=== PATIENT | female | born 1940 | race Two or more races ===

== ENCOUNTER 2018-01-10 21:16 | Emergency (ER) | payer MEDICARE, OTHER ==
[~2018-01-10] VITALS: Ht 121.9 cm; Wt 52.1 kg
[2018-01-10 21:19] VITALS: BP 196/82
== END 2018-01-10 21:45 | disposition home or self-care (01) ==
LOC: ED 21:39
DX: H65.01 Acute serous otitis media, right ear (principal); I10 Essential (primary) hypertension; E11.9 Type 2 diabetes mellitus without complications; I25.10 Atherosclerotic heart disease of native coronary artery without angina pectoris
CPT/HCPCS: 99282

== ENCOUNTER 2018-05-16 00:46 | Emergency (ER) | payer MEDICARE ==
[~2018-05-16] VITALS: Ht 152.4 cm; Wt 47.6 kg
--- NOTE | 2018-05-16 01:06 | NUR ---
PT PRESENTS TO E/D THIS PM FOR "ANXIETY AND CHEST DISCOMFORT." PT IS CRYING AT BEDSIDE AND STATES SHE IS FEELING ANXIOUS SHE IS HAVING ANOTHER HEART ATTACK. STATES DX OF ANXIETY AND PAST W/ MEDICATION FOR MANAGEMENT. DENIES TAKING MEDICATION FOR ANXIETY RECENTLY. STATES CP L SIDE OF CHEST RADIATING TO A "CRAMP IN L OF NECK." STATES SOB AND NAUSEA ASSOCIATED WELL. TOOK 1 NITRO AT 2300 W/ MODERATE RELIEF AND ASPIRIN INSTRUCTED BY PRIOR MEDICAL STAFF TEACHING. 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 ALL MONITORING APPLIED. VSS. CALL LIGHT WITHIN REACH. AWAITING MD ASSESSMENT.
[2018-05-16 01:51] LABS: BASOPHILS # (AUTO) 0.02 x10^3/uL (0-0.1); BASOPHILS % (AUTO) 0 % (0-1); EOSINOPHILS # (AUTO) 0.07 x10^3/uL (0-0.4); EOSINOPHILS % (AUTO) 1 % (1-7); LYMPHOCYTES # (AUTO) 1.88 x10^3/uL (1-3.4); LYMPHOCYTES % (AUTO) 20 % (22-44); MD NO; MEAN CORPUSCULAR HEMOGLOBIN 32.2 pg (27.0-34.8); MEAN CORPUSCULAR HGB CONC 33.8 g/dL (32.4-35.8); MEAN CORPUSCULAR VOLUME 95.3 fL (80-100); MEAN PLATELET VOLUME 8.4 fL (7.4-10.4); MONOCYTES # (AUTO) 0.29 x10^3/uL (0.2-0.8); MONOCYTES % (AUTO) 3 % (2-9); NEUTROPHILS # (AUTO) 7.23 x10^3/uL (1.8-6.8); NEUTROPHILS % (AUTO) 76 % (42-75); PLATELET COUNT 297 x10^3/uL (130-400); RED BLOOD COUNT 3.33 x10^6/uL (3.82-5.3); RED CELL DISTRIBUTION WIDTH 13.2 % (9.6-15.2)
[2018-05-16 01:57] LABS: PROTHROMBIN TIME 10.6 Seconds (9.6-11.5)
[2018-05-16 01:58] LABS: ALANINE AMINOTRANSFERASE 13 U/L (12-78); ALBUMIN 3.3 g/dL (3.4-5.0); ANION GAP 8 mmol/L (5-15); CALCIUM 8.2 mg/dL (8.5-10.1); CHLORIDE 112 mmol/L (98-107); CREATININE 0.78 mg/dL (0.55-1.02)
[2018-05-16 02:02] LABS: ALKALINE PHOSPHATASE 83 U/L (45-117); BILIRUBIN,TOTAL 0.2 mg/dL (0.2-1.0); TROPONIN I < 0.015 ng/mL (0.000-0.045)
--- NOTE | 2018-05-16 02:25 | NUR ---
AT BEDSIDE FOR RECHECK.
--- NOTE | 2018-05-16 02:34 | NUR ---
PT TROP TO BE REPEAT AT 0430 AND TBDC IF TROP IS NEGATIVE BY ERP ORDER. NO IMMEDIATE NEEDS FROM PT. VSS. CALL LIGHT WITHIN REACH.
--- NOTE | 2018-05-16 03:25 | NUR ---
PT GIVEN WATER PER REQUEST. WARM BLANKET GIVEN AND LIGHTS DIMMED FOR COMFORT. VSS. CALL LIGHT WITHIN REACH. AWAITING 0430 TROP DRAW.
--- NOTE | 2018-05-16 04:48 | NUR ---
LAB DRAWN AT THIS TIME. NADN. NO IMMEDIATE NEEDS FROM PT. AWAITING TROP RESULTS.
[2018-05-16 04:49] VITALS: BP 131/59
[2018-05-16 05:12] LABS: TROPONIN I < 0.015 ng/mL (0.000-0.045)
--- NOTE | 2018-05-16 05:15 | NUR ---
PT TBDC. AWAITING D/C PAPERWORK.
== END 2018-05-16 05:21 | disposition home or self-care (01) ==
LOC: ED 01:41
DX: R07.89 Other chest pain (principal); R06.02 Shortness of breath; R51 Headache; R05 Cough; I10 Essential (primary) hypertension; E11.9 Type 2 diabetes mellitus without complications; I65.29 Occlusion and stenosis of unspecified carotid artery
CPT/HCPCS: 36415; 71045; 80053; 83880; 84484; 85025; 85610; 85730; 93005; 99284

== ENCOUNTER 2018-05-21 22:11 | Observation (INO) | payer MEDICARE ==
[~2018-05-21] VITALS: Ht 149.9 cm; Wt 50.9 kg
--- NOTE | 2018-05-21 22:27 | NUR ---
PT. AMBULATED TO ROOM FROM TRIAGE WITH STEADY GAIT.
--- NOTE | 2018-05-21 22:35 | NUR ---
PT. TO ED WITH C/O STERNAL CHEST PRESSURE AFTER AN ARGUMENT WITH FAMILY TONIGHT. PT. REPORTS PAIN CAME ON ALL OF THE SUDDEN AND IS OFF/ON. DENIES SOB, N/V, OR DIZZINESS. DR. ASCENCIO AT TO EVAL PT. AND DISCUSS POC. PT. IS ON ALL MONITORS. CALL LIGHT IN REACH, ALL SAFETY MEASUERS OBSERVED.
[2018-05-21] MEDS ORDERED: NITROGLYCERIN OINT 2%, 1GM TP ONE ×2 (23:00→23:07)
[2018-05-21] MEDS ORDERED: SODIUM CHLORIDE FLUSH 10ML SYR IVF ONE (23:00)
[2018-05-21] MEDS ORDERED: ASPIRIN 81 MG TABLET CHEW PO ONE (23:00)
[2018-05-21] MEDS ORDERED: ASPIRIN 81 MG TABLET CHEW ONE (23:07)
--- NOTE | 2018-05-21 23:12 | NUR ---
IV WAS ESTABLISHED AND BLOOD DRAWN. CHEST X-RAY HAS BEEN COMPLETED. PT. MEDICATED PER JUN. PT. DOES REPORT THAT HER STERNAL CP RADIATES TO LEFT ARM/NECK/BACK. PT. PROVIDED WITH WARM BLANKET. CALL LIGHT IN REACH. ALL MONITORS IN PLACE. ALL SAFETY MEASURES OBSERVED.
[2018-05-21 23:17] LABS: BASOPHILS # (AUTO) 0.03 x10^3/uL (0-0.1); BASOPHILS % (AUTO) 0 % (0-1); EOSINOPHILS # (AUTO) 0.08 x10^3/uL (0-0.4); EOSINOPHILS % (AUTO) 1 % (1-7); LYMPHOCYTES # (AUTO) 1.75 x10^3/uL (1-3.4); LYMPHOCYTES % (AUTO) 16 % (22-44); MD NO; MEAN CORPUSCULAR HEMOGLOBIN 31.8 pg (27.0-34.8); MEAN CORPUSCULAR HGB CONC 33.6 g/dL (32.4-35.8); MEAN CORPUSCULAR VOLUME 94.8 fL (80-100); MEAN PLATELET VOLUME 8.2 fL (7.4-10.4); MONOCYTES # (AUTO) 0.49 x10^3/uL (0.2-0.8); MONOCYTES % (AUTO) 5 % (2-9); NEUTROPHILS # (AUTO) 8.31 x10^3/uL (1.8-6.8); NEUTROPHILS % (AUTO) 78 % (42-75); PLATELET COUNT 362 x10^3/uL (130-400); RED BLOOD COUNT 3.63 x10^6/uL (3.82-5.3); RED CELL DISTRIBUTION WIDTH 13.6 % (9.6-15.2)
[2018-05-21 23:20] LABS: INTERNATIONAL NORMALIZED RATIO 0.99 (0.93-1.1); PROTHROMBIN TIME 10.5 Seconds (9.6-11.5)
[2018-05-21 23:22] LABS: ALANINE AMINOTRANSFERASE 13 U/L (12-78); ALBUMIN 3.4 g/dL (3.4-5.0); ANION GAP 6 mmol/L (5-15); CALCIUM 8.6 mg/dL (8.5-10.1); CHLORIDE 115 mmol/L (98-107); CREATININE 0.83 mg/dL (0.55-1.02)
[2018-05-21] MEDS ORDERED: ALBU18HF INH (23:22)
[2018-05-21] MEDS ORDERED: CARV12.52 PO (23:22)
[2018-05-21] MEDS ORDERED: ISOS60TA36 PO (23:22)
[2018-05-21] MEDS ORDERED: LEVO88TA4 PO (23:22)
[2018-05-21] MEDS ORDERED: LOSA25TA25 PO (23:22)
[2018-05-21] MEDS ORDERED: CLOP75TA52 PO (23:22)
[2018-05-21] MEDS ORDERED: SULF-169 PO (23:22)
[2018-05-21] MEDS ORDERED: IPRA4AER INH (23:22)
[2018-05-21] MEDS ORDERED: LINA5TAB PO (23:22)
[2018-05-21] MEDS ORDERED: GABA100C PO (23:22)
[2018-05-21] MEDS ORDERED: ATOR20TA37 PO (23:22)
--- NOTE | 2018-05-21 23:22 | NUR ---
PT. REPORTS PAIN STARTED AT 2155; TOOK 1 NITRO TAB AT 2200 AND PAIN WENT FROM 10 TO 6; PT. THEN CAME TO ED.
[2018-05-21 23:26] LABS: ALKALINE PHOSPHATASE 86 U/L (45-117); BILIRUBIN,TOTAL 0.2 mg/dL (0.2-1.0); TROPONIN I < 0.015 ng/mL (0.000-0.045)
--- NOTE | 2018-05-22 00:09 | NUR ---
ALL RESULTES BACK AT THIS TIME. PER DR. ASCENCIO PT. TO BE ADMITTED; AWAITING ADM ORDER.
[2018-05-22] MEDS ORDERED: NITROGLYCERIN 0.4 MG BOTTLE (25 TABS) SL PRN (00:30)
[2018-05-22] MEDS ORDERED: ONDANSETRON ODT 4 MG PO PRN (00:30)
[2018-05-22] MEDS ORDERED: POLYETHYLENE GLYCOL 17 GM PACKET PO PRN (00:30)
[2018-05-22] MEDS ORDERED: BISACODYL 10 MG SUPP PR PRN (00:30)
--- NOTE | 2018-05-22 01:21 | NUR ---
REPORT TO HELLEN GEE. FLOOR READY FOR PT. TRANSPORT.
[2018-05-22 01:35] VITALS: BP 129/75
[2018-05-22] MEDS: GABAPENTIN 100 MG CAPSULE PO SCH ×3 (01:53→21:35)
[2018-05-22] MEDS: ATORVASTATIN 20 MG TABLET PO SCH ×2 (01:54→21:27)
[2018-05-22] MEDS: ACETAMINOPHEN 325 MG TABLET PO PRN ×3 (01:54→21:30)
[2018-05-22] MEDS: HEPARIN 5,000 UNITS/ML, 1ML SQ SCH ×4 (01:54→21:27)
[2018-05-22 02:11] VITALS: BP 129/75
[2018-05-22] MEDS ORDERED: ALBUTEROL/IPRATROPIUM 2.5MG/0.5MG, 3 ML NPPB PRN (04:00)
[2018-05-22 05:21] VITALS: BP 107/53
[2018-05-22] MEDS: ASPIRIN 81 MG TABLET EC PO SCH (05:24)
[2018-05-22] MEDS: LEVOTHYROXINE 88 MCG TABLET PO SCH (05:25)
[2018-05-22] MEDS: CARVEDILOL 12.5 MG TABLET PO SCH ×2 (05:25→18:27)
[2018-05-22 07:21] VITALS: BP 112/78
[2018-05-22 07:55] LABS: TROPONIN I < 0.015 ng/mL (0.000-0.045)
[2018-05-22] MEDS ORDERED: REGADENOSON 0.4 MG/5 ML SYRINGE ONE (08:29)
[2018-05-22] MEDS: SENNA/DOCUSATE TABLET PO SCH (08:50)
[2018-05-22] MEDS: SODIUM CHLORIDE FLUSH 10ML SYR IVF SCH ×2 (08:50→21:28)
[2018-05-22] MEDS: ISOSORBIDE MONONITRATE ER 60 MG TABLET PO SCH (08:50)
[2018-05-22] MEDS: LOSARTAN 25MG TABLET PO SCH (08:50)
[2018-05-22] MEDS: SULFAMETH./TRIMETHOPRIM DS 800MG/160MG TABLET PO SCH ×3 (08:50→21:33)
[2018-05-22] MEDS: CLOPIDOGREL 75 MG TABLET PO SCH (08:50)
[2018-05-22 12:25] LABS: TROPONIN I < 0.015 ng/mL (0.000-0.045)
[2018-05-22 14:36] VITALS: BP 105/52
[2018-05-22] MEDS ORDERED: MORPHINE SULFATE 4 MG/ML, 1ML ONE (18:22)
[2018-05-22] MEDS: morphine SULFATE 10 MG/ML, 1ML IVPush PRN ×2 (18:27→22:45)
[2018-05-22 19:12] VITALS: BP 123/54
[2018-05-23 03:30] VITALS: BP_SYST 116; BP_SYST 136; BP_SYST 144; BP_DIAS 65; BP_DIAS 66; BP_DIAS 73
[2018-05-23] MEDS: morphine SULFATE 10 MG/ML, 1ML IVPush PRN (03:33)
[2018-05-23 05:36] LABS: CHOL/HDL RATIO 2.2; LDL/HDL RATIO 0.6 (0.5-3.0)
[2018-05-23] MEDS: ASPIRIN 81 MG TABLET EC PO SCH (05:50)
[2018-05-23] MEDS: HEPARIN 5,000 UNITS/ML, 1ML SQ SCH ×2 (05:50→13:30)
[2018-05-23] MEDS: LEVOTHYROXINE 88 MCG TABLET PO SCH (05:50)
[2018-05-23] MEDS: CARVEDILOL 12.5 MG TABLET PO SCH (05:51)
[2018-05-23] MEDS ORDERED: SODIUM CHLORIDE 0.9%, 500ML IVBOLUS ONE (06:00)
[2018-05-23 08:05] VITALS: BP 115/54
[2018-05-23 08:06] VITALS: BP 120/64
[2018-05-23 08:07] VITALS: BP 113/65
[2018-05-23] MEDS: SULFAMETH./TRIMETHOPRIM DS 800MG/160MG TABLET PO SCH ×2 (09:00→09:31)
[2018-05-23] MEDS: SENNA/DOCUSATE TABLET PO SCH (09:00)
[2018-05-23] MEDS: CLOPIDOGREL 75 MG TABLET PO SCH (09:30)
[2018-05-23] MEDS: ACETAMINOPHEN 325 MG TABLET PO PRN ×2 (09:31→13:29)
[2018-05-23] MEDS: SODIUM CHLORIDE FLUSH 10ML SYR IVF SCH (09:31)
[2018-05-23] MEDS: LOSARTAN 25MG TABLET PO SCH (09:31)
[2018-05-23] MEDS: ISOSORBIDE MONONITRATE ER 60 MG TABLET PO SCH (09:34)
[2018-05-23 13:23] VITALS: BP 146/72
== END 2018-05-23 16:00 | disposition home or self-care (01) ==
LOC: ED 23:15 → EDIP 05-22 00:24 → 5SO 05-22 01:49 → DCLOUNGE 05-23 15:43
PROVIDERS: ADMIT Internal Medicine; ATTEND Internal Medicine
DX: R07.89 Other chest pain (principal); E03.9 Hypothyroidism, unspecified; E11.9 Type 2 diabetes mellitus without complications; E78.5 Hyperlipidemia, unspecified; I10 Essential (primary) hypertension; I25.110 Atherosclerotic heart disease of native coronary artery with unstable angina pectoris; I44.7 Left bundle-branch block, unspecified; M06.9 Rheumatoid arthritis, unspecified; Z77.22 Contact with and (suspected) exposure to environmental tobacco smoke (acute) (chronic); Z90.710 Acquired absence of both cervix and uterus; Z95.5 Presence of coronary angioplasty implant and graft; Z23 Encounter for immunization
CPT/HCPCS: 36415; 70450; 71045; 78452; 80053; 80061; 84484; 85025; 85610; 85730; 90656; 93005; 93017; 96372; 96374; 96376; 97162; 97166; 97530; 99284; A9502; C9898; G0008; G0378; G8978; G8979; G8980; J1644; J2270; J2785; J7040

== ENCOUNTER 2018-06-27 22:02 | Emergency (ER) | payer MEDICARE ==
[~2018-06-27] VITALS: Ht 147.3 cm; Wt 46.7 kg
[~2018-06-27 22:02] MED LIST: ALBU18HF INH; ATOR20TA37 PO; CARV12.52 PO; CLOP75TA52 PO; GABA100C PO; IPRA4AER INH; ISOS60TA36 PO; LEVO88TA4 PO; LINA5TAB PO; LOSA25TA25 PO; SULF-169 PO
[2018-06-27 22:53] LABS: BASOPHILS # (AUTO) 0.02 x10^3/uL (0-0.1); BASOPHILS % (AUTO) 0 % (0-1); EOSINOPHILS # (AUTO) 0.31 x10^3/uL (0-0.4); EOSINOPHILS % (AUTO) 4 % (1-7); LYMPHOCYTES # (AUTO) 2.14 x10^3/uL (1-3.4); LYMPHOCYTES % (AUTO) 28 % (22-44); MD NO; MEAN CORPUSCULAR HEMOGLOBIN 31.9 pg (27.0-34.8); MEAN CORPUSCULAR HGB CONC 33.7 g/dL (32.4-35.8); MEAN CORPUSCULAR VOLUME 94.7 fL (80-100); MEAN PLATELET VOLUME 7.9 fL (7.4-10.4); MONOCYTES # (AUTO) 0.51 x10^3/uL (0.2-0.8); MONOCYTES % (AUTO) 7 % (2-9); NEUTROPHILS # (AUTO) 4.69 x10^3/uL (1.8-6.8); NEUTROPHILS % (AUTO) 61 % (42-75); PLATELET COUNT 301 x10^3/uL (130-400); RED BLOOD COUNT 3.45 x10^6/uL (3.82-5.3); RED CELL DISTRIBUTION WIDTH 15.8 % (9.6-15.2)
--- NOTE | 2018-06-27 23:04 | NUR ---
PT PLACED ON CARDIAC AND VITALS MONITORS. PT RESTING IN BED IN HOSPITAL GOWN. LABS DRAWN, CXR DONE AND EKG. IV STARTED. PT C/O PAIN IN LEFT LOWER BACK, WILL INFORM PROVIDER. WILL CONTINUE TO MONITOR.
[2018-06-27 23:06] LABS: ALANINE AMINOTRANSFERASE 12 U/L (12-78); ALBUMIN 3.6 g/dL (3.4-5.0); ANION GAP 4 mmol/L (5-15); CALCIUM 8.5 mg/dL (8.5-10.1); CHLORIDE 114 mmol/L (98-107); CREATININE 0.85 mg/dL (0.55-1.02)
[2018-06-27 23:10] LABS: ALKALINE PHOSPHATASE 115 U/L (45-117); BILIRUBIN,TOTAL 0.3 mg/dL (0.2-1.0); TOTAL PROTEIN 7.4 g/dL (6.4-8.2); TROPONIN I < 0.015 ng/mL (0.000-0.045)
[2018-06-27] MEDS ORDERED: KETOROLAC 30 MG/1 ML IM ONE (23:30)
[2018-06-27] MEDS ORDERED: KETOROLAC 30 MG/1 ML ONE (23:45)
[2018-06-28] MEDS ORDERED: KETOROLAC 30 MG/1 ML IVPush ONE
--- NOTE | 2018-06-28 00:53 | NUR ---
REPORT RECEIVED AND CARE ASSUMED. UPON ENTERING , PT REQUESTING NITRO. STATES NEW CP JUST STARTED NOW. STATES "WHEN MY L SIDE STARTS HURTING REALLY BAD, IT TRAVELS TO MY CHEST." PT STATES SHE HAS BEEN TAKING NITRO AT HOME FOR THE LAST WEEK FOR THE SAME. REPEAT EKG COMPLETED. VSS. ERP AT BEDSIDE TO RECHECK.
[2018-06-28] MEDS ORDERED: HYDROcodone/APAP 5/325 TABLET ONE (00:58)
[2018-06-28] MEDS ORDERED: NITROGLYCERIN SINGLE TAB 0.4 MG SL ONE (00:58)
[2018-06-28] MEDS ORDERED: NITROGLYCERIN 0.4 MG BOTTLE (25 TABS) SL PRN (01:00)
[2018-06-28] MEDS ORDERED: HYDROcodone/APAP 5/325 TABLET PO ONE (01:00)
--- NOTE | 2018-06-28 01:02 | NUR ---
PT NOW STATES ALL CP RESOLVED--NITRO HELD AT THIS TIME. PT MEDICATED PER MAR FOR HER CHRONIC HIP PAIN--STATES SHE TAKES NORCO EVERY 4-6 HOURS AT HOME AND IS DUE FOR HER MEDS NOW. CALL LIGHT IN REACH. NO FURTHER NEEDS EXPRESSED.
[2018-06-28] MEDS ORDERED: OMNIPAQUE 350 MG/ML, 100ML BOTTLE ONE (01:30)
--- NOTE | 2018-06-28 01:50 | NUR ---
PT STATES PAIN IMPROVING AFTER NORCO. STATES NO NEW CP AND CONTINUES TO DECLINE NITRO. NO ACUTE CHANGES NOTED ON MONITOR. VSS. LAB AT BEDSIDE TO DRAW REPEAT TROP. PT AWARE OF POC. CALL LIGHT IN REACH.
[2018-06-28 02:12] LABS: TROPONIN I < 0.015 ng/mL (0.000-0.045)
--- NOTE | 2018-06-28 02:18 | NUR ---
SANDWICH AND YOGURT GIVEN PER ERP OK. AWAITING LABS. PT AWARE OF POC. CALL LIGHT IN REACH.
[2018-06-28 03:09] VITALS: BP 164/76
== END 2018-06-28 03:12 | disposition home or self-care (01) ==
LOC: ED 23:57
DX: M54.6 Pain in thoracic spine (principal); R07.89 Other chest pain; R11.10 Vomiting, unspecified; I25.10 Atherosclerotic heart disease of native coronary artery without angina pectoris; E78.5 Hyperlipidemia, unspecified; I10 Essential (primary) hypertension; E11.9 Type 2 diabetes mellitus without complications; X58.XXXA Exposure to other specified factors, initial encounter; Y93.89 Activity, other specified; Y92.009 Unspecified place in unspecified non-institutional (private) residence as the place of occurrence of the external cause; Y99.8 Other external cause status
CPT/HCPCS: 36415; 71045; 71275; 80053; 84484; 85025; 85379; 93005; 96374; 99284; J1885; Q9967

== ENCOUNTER 2018-06-30 16:47 | Inpatient (IN) | payer MEDICARE, OTHER ==
[~2018-06-30] VITALS: Ht 121.9 cm; Wt 50.9 kg
[2018-06-30 17:47] LABS: MEAN CORPUSCULAR VOLUME 94.4 fL (80-100); MEAN PLATELET VOLUME 8.1 fL (7.4-10.4); PLATELET COUNT 299 x10^3/uL (130-400); RED BLOOD COUNT 3.54 x10^6/uL (3.82-5.3)
[2018-06-30 17:52] LABS: BASOPHILS # (AUTO) 0.04 x10^3/uL (0-0.1); BASOPHILS % (AUTO) 0 % (0-1); EOSINOPHILS # (AUTO) 0.12 x10^3/uL (0-0.4); EOSINOPHILS % (AUTO) 1 % (1-7); LYMPHOCYTES # (AUTO) 1.87 x10^3/uL (1-3.4); LYMPHOCYTES % (AUTO) 16 % (22-44); MD NO; MONOCYTES # (AUTO) 0.56 x10^3/uL (0.2-0.8); MONOCYTES % (AUTO) 5 % (2-9); NEUTROPHILS # (AUTO) 8.92 x10^3/uL (1.8-6.8); NEUTROPHILS % (AUTO) 78 % (42-75)
[2018-06-30 17:55] LABS: ALBUMIN 3.6 g/dL (3.4-5.0); ANION GAP 5 mmol/L (5-15); CALCIUM 8.9 mg/dL (8.5-10.1); CHLORIDE 111 mmol/L (98-107); CREATININE 0.89 mg/dL (0.55-1.02)
[2018-06-30 17:59] LABS: TROPONIN I < 0.015 ng/mL (0.000-0.045)
--- NOTE | 2018-06-30 19:44 | NUR ---
pt called to room from lobby
--- NOTE | 2018-06-30 20:16 | NUR ---
PT STATES PAIN LEFT FLANK THAT WRAPS AROUND LEFT SIDE UNDER RIB CAGE, LEFT NECK PAIN, BACK PAIN
[2018-06-30] MEDS ORDERED: KETOROLAC 30 MG/1 ML IVPush ONE (20:30)
[2018-06-30] MEDS ORDERED: HYDR-3240 PO (20:32)
--- NOTE | 2018-06-30 20:50 | NUR ---
REPORT TO PATT MACEDO
--- NOTE | 2018-06-30 21:19 | NUR ---
REPORT RECEIVED FROM JOCELYNN MACEDO.
--- NOTE | 2018-06-30 21:29 | NUR ---
PT CAME TO CT WITH IV IN LEFT ARM THAT DIFFICULT TO FLUSH. START A 20G IN RIGHT AC FOR CT. SENT PT BACK TO ER WITH IV.
[2018-06-30] MEDS ORDERED: OMNIPAQUE 350 MG/ML, 100ML BOTTLE ONE (21:33)
--- NOTE | 2018-06-30 21:35 | NUR ---
PT BACK TO ROOM FROM CT
--- NOTE | 2018-06-30 21:42 | NUR ---
PT'S PAIN LEVEL IS 8/10 AT THIS TIME. PT REQUESTING PAIN MED. EDMD NOTIFIED.
[2018-06-30] MEDS ORDERED: morphine SULFATE 10 MG/ML, 1ML ONE (21:47)
--- NOTE | 2018-06-30 21:50 | NUR ---
PT MEDICATED PER EMAR. PT TOLERATED WELL.
[2018-06-30] MEDS ORDERED: MORPHINE SULFATE 4 MG/ML, 1ML IVPush ONE (22:00)
[2018-06-30] MEDS ORDERED: CEFTRIAXONE PMX 1GM/50ML 50 ML IV ONE ×2 (22:00→23:00)
[2018-06-30] MEDS ORDERED: AZITHROMYCIN 500 MG in SODIUM CHLORIDE 0.9% 250 ML IV ONE (22:00)
[2018-06-30] MEDS: SODIUM CHLORIDE 0.9% 1,000 ML IV SCH (22:22)
[2018-06-30] MEDS ORDERED: CEFTRIAXONE PMX 1GM/50ML 50 ML ONE (22:23)
[2018-06-30] MEDS ORDERED: ONDANSETRON 2MG/ML, 2ML IVPush PRN (22:30)
[2018-06-30] MEDS ORDERED: morphine SULFATE 10 MG/ML, 1ML IVPush PRN (22:30)
[2018-06-30] MEDS ORDERED: GABAPENTIN 300 MG CAPSULE PO PRN (22:30)
[2018-06-30] MEDS ORDERED: NITROGLYCERIN 0.4 MG BOTTLE (25 TABS) SL PRN (22:30)
[2018-06-30] MEDS ORDERED: OXYcodone/APAP 5/325MG TABLET PO PRN (22:30)
[2018-06-30] MEDS ORDERED: ONDANSETRON ODT 4 MG PO PRN (22:30)
[2018-06-30] MEDS ORDERED: PROMETHAZINE 25 MG/ML, 1ML IM PRN (22:30)
[2018-06-30] MEDS ORDERED: LABETALOL 5 MG/ML SYRINGE IVPush PRN ×2 (22:30→23:30)
[2018-06-30] MEDS ORDERED: POLYETHYLENE GLYCOL 17 GM PACKET PO PRN (22:30)
[2018-06-30] MEDS ORDERED: DOCUSATE 100 MG CAPSULE PO PRN (22:30)
[2018-06-30] MEDS ORDERED: hydrALAzine 20 MG/ML, 1ML IVPush PRN (22:30)
[2018-06-30] MEDS ORDERED: ACETAMINOPHEN 325 MG TABLET PO PRN (22:30)
[2018-06-30] MEDS ORDERED: BISACODYL 10 MG SUPP PR PRN (22:30)
--- NOTE | 2018-06-30 22:30 | NUR ---
PT MEDICATED PER EMAR. PT TOLERATED WELL.
[2018-06-30] MEDS ORDERED: TEMPLATE NON-FORMULARY MED. (Carvedilol** 12.5 MG) PO SCH (23:00)
[2018-06-30 23:13] LABS: HEMOGLOBIN A1C 5.8 % (4.2-6.3)
[2018-06-30 23:15] LABS: FREE T4 (FREE THYROXINE) 1.31 ng/dL (0.76-1.46); THYROID STIMULATING HORMONE 0.276 mIU/L (0.358-3.740)
[2018-06-30] MEDS ORDERED: CARVEDILOL 3.125 MG TABLET ONE (23:23)
[2018-06-30] MEDS ORDERED: HEPARIN 5,000 UNITS/ML, 1ML ONE (23:23)
[2018-06-30] MEDS: HEPARIN 5,000 UNITS/ML, 1ML SQ SCH (23:30)
--- NOTE | 2018-06-30 23:43 | NUR ---
MEDICATION ORDERED FROM PHARMACY NOW.
[2018-07-01] MEDS: ATORVASTATIN 20 MG TABLET PO SCH ×2 (00:21→20:35)
[2018-07-01] MEDS: GABAPENTIN 100 MG CAPSULE PO SCH ×2 (00:21→20:34)
--- NOTE | 2018-07-01 00:22 | NUR ---
PT MEDICATED PER EMAR. PT TOLERATED WELL. PT'S AOX4. RESPS EVEN AND UNLABORED.
--- NOTE | 2018-07-01 00:56 | NUR ---
PT PROVIDED HOSPITAL BED. PT SLEEPING IN HOSPITAL BED. RESPS EVEN AND UNLABORED.
[2018-07-01 00:57] LABS: MICROSCOPIC AUTO
[2018-07-01 00:59] LABS: CULTURE INDICATED? YES
--- NOTE | 2018-07-01 01:41 | NUR ---
PT PROVIDED SOME SNACKS AT THIS TIME.
--- NOTE | 2018-07-01 02:34 | NUR ---
PT SLEEPING IN HOSPITAL BED. RESPS EVEN AND UNLABORED. AWAITING ADMIT.
[2018-07-01] MEDS ORDERED: ALBUTEROL SULFATE 2.5 MG/3 ML NPPB PRN (03:00)
[2018-07-01] MEDS ORDERED: ALBUTEROL/IPRATROPIUM 2.5MG/0.5MG, 3 ML NPPB PRN (03:00)
--- NOTE | 2018-07-01 04:40 | NUR ---
PT SLEEPING IN HOSPITAL BED. OXY 2L/MIN BY NC APPLIED D/T SPO2 88%. SPO2 92% WITH OXY AT THIS TIME.
[2018-07-01 05:17] LABS: BASOPHILS % (AUTO) 2 % (0-1); EOSINOPHILS # (AUTO) 0.24 x10^3/uL (0-0.4); EOSINOPHILS % (AUTO) 3 % (1-7); LYMPHOCYTES # (AUTO) 2.69 x10^3/uL (1-3.4); LYMPHOCYTES % (AUTO) 31 % (22-44); MD NO; MEAN CORPUSCULAR HEMOGLOBIN 32.2 pg (27.0-34.8); MEAN CORPUSCULAR HGB CONC 34.1 g/dL (32.4-35.8); MEAN CORPUSCULAR VOLUME 94.3 fL (80-100); MEAN PLATELET VOLUME 8.2 fL (7.4-10.4); MONOCYTES # (AUTO) 0.67 x10^3/uL (0.2-0.8); MONOCYTES % (AUTO) 8 % (2-9); NEUTROPHILS # (AUTO) 5.02 x10^3/uL (1.8-6.8); NEUTROPHILS % (AUTO) 57 % (42-75); PLATELET COUNT 242 x10^3/uL (130-400); RED BLOOD COUNT 2.92 x10^6/uL (3.82-5.3); RED CELL DISTRIBUTION WIDTH 15.8 % (9.6-15.2)
[2018-07-01 05:25] LABS: ALANINE AMINOTRANSFERASE 9 U/L (12-78); ALBUMIN 2.9 g/dL (3.4-5.0); ANION GAP 5 mmol/L (5-15); CALCIUM 7.9 mg/dL (8.5-10.1); CHLORIDE 115 mmol/L (98-107)
[2018-07-01 05:28] LABS: ALKALINE PHOSPHATASE 91 U/L (45-117); BILIRUBIN,TOTAL 0.2 mg/dL (0.2-1.0); CHOL/HDL RATIO 2.6; CHOLESTEROL, TOTAL 114 mg/dL (140-239); CREATININE 0.77 mg/dL (0.55-1.02); HDL CHOL % 39 % (28-40); HDL CHOLESTEROL (DIRECT) 44 mg/dL (40-60); LDL CHOLESTEROL,CALCULATED 30 mg/dL (54-169); LDL/HDL RATIO 0.7 (0.5-3.0); TRIGLYCERIDES 202 mg/dL (50-200); VLDL CHOLESTEROL 40 mg/dL (0-25)
--- NOTE | 2018-07-01 05:34 | NUR ---
PT PROVIDED WATER. PT REQUESTING PAIN MED AT THIS TIME.
[2018-07-01] MEDS ORDERED: ASPIRIN 81 MG TABLET EC ONE (05:36)
[2018-07-01] MEDS ORDERED: morphine SULFATE 10 MG/ML, 1ML ONE (05:37)
--- NOTE | 2018-07-01 05:40 | NUR ---
PT MEDICATED PER EMAR FOR PAIN. PT TOLERATED WELL.
--- NOTE | 2018-07-01 05:44 | NUR ---
MEDS ORDERED FROM PHARMACY AT THIS TIME.
[2018-07-01] MEDS: ASPIRIN 325 MG TABLET EC PO SCH (06:01)
[2018-07-01] MEDS: LEVOTHYROXINE 88 MCG TABLET PO SCH (06:01)
--- NOTE | 2018-07-01 06:03 | NUR ---
PT MEDEICATED PER EMAR. PT TOLERATED WELL.
--- NOTE | 2018-07-01 06:52 | NUR ---
REPORT GIVEN TO JANNY MACEDO.
[2018-07-01] MEDS ORDERED: HEPARIN 5,000 UNITS/ML, 1ML ONE (07:23)
[2018-07-01] MEDS: HEPARIN 5,000 UNITS/ML, 1ML SQ SCH ×3 (07:27→22:38)
[2018-07-01] MEDS ORDERED: ACETAMINOPHEN 325 MG TABLET PO PRN (07:30)
--- NOTE | 2018-07-01 07:30 | NUR ---
Plan of care updated with patient, questions answered. Call vincent within reach. Breakfast tray ordered, ice water provided. Patient remains in emergency department waiting for telemetry bed.
[2018-07-01] MEDS: CARVEDILOL 12.5 MG TABLET PO SCH ×2 (09:00→20:39)
[2018-07-01] MEDS: LINAGLIPTIN 5 MG TAB PO SCH (09:42)
[2018-07-01] MEDS: CLOPIDOGREL 75 MG TABLET PO SCH (09:42)
[2018-07-01] MEDS: ISOSORBIDE MONONITRATE ER 60 MG TABLET PO SCH (09:42)
[2018-07-01] MEDS: LOSARTAN 25MG TABLET PO SCH (09:42)
--- NOTE | 2018-07-01 09:46 | NUR ---
Plan of care updated, patient continues to wait in emergency department for telemetry placement.
--- NOTE | 2018-07-01 10:29 | NUR ---
Patient given coffee as requested, comfort measures provided. Patient to be admitted to medical unit.
--- NOTE | 2018-07-01 11:20 | NUR ---
Plan of care discussed, questions answered. Report to HELLEN Mcwilliams.
[2018-07-01 12:43] VITALS: BP 134/54
[2018-07-01] MEDS: SODIUM CHLORIDE 0.9% 1,000 ML IV SCH (12:48)
[2018-07-01] MEDS ORDERED: ACETAMINOPHEN 325 MG TABLET PO SCH (13:30)
[2018-07-01] MEDS: HYDROcodone/APAP 5/325 TABLET PO PRN ×2 (18:09→21:49)
[2018-07-01] MEDS ORDERED: CEFTRIAXONE PMX 2GM/50ML 50 ML IV SCH (20:00)
[2018-07-01] MEDS ORDERED: AZITHROMYCIN 500 MG in SODIUM CHLORIDE 0.9% 250 ML IV SCH (21:00)
[2018-07-01] MEDS ORDERED: HYDROcodone/APAP 5/325 TABLET PO ONE (21:30)
[2018-07-01 21:41] VITALS: BP 144/71
[2018-07-02 01:27] VITALS: BP 126/64
[2018-07-02] MEDS: HYDROcodone/APAP 5/325 TABLET PO PRN ×4 (01:44→14:01)
[2018-07-02 05:29] LABS: % IRON SATURATION 14 % (20-55); IRON LEVEL 35 mcg/dL (50-170); TOTAL IRON BINDING CAPACITY 249 mcg/dL (250-450)
[2018-07-02] MEDS: HEPARIN 5,000 UNITS/ML, 1ML SQ SCH ×2 (05:49→14:30)
[2018-07-02] MEDS: LEVOTHYROXINE 88 MCG TABLET PO SCH (05:50)
[2018-07-02] MEDS: ASPIRIN 325 MG TABLET EC PO SCH (05:50)
[2018-07-02] MEDS ORDERED: FERROUS SULFATE 325 MG TABLET PO SCH (07:30)
[2018-07-02 07:35] VITALS: BP 159/79
[2018-07-02] MEDS: CLOPIDOGREL 75 MG TABLET PO SCH (07:51)
[2018-07-02] MEDS: CARVEDILOL 12.5 MG TABLET PO SCH (07:52)
[2018-07-02] MEDS: LOSARTAN 25MG TABLET PO SCH (07:52)
[2018-07-02] MEDS: LINAGLIPTIN 5 MG TAB PO SCH (07:52)
[2018-07-02] MEDS: ISOSORBIDE MONONITRATE ER 60 MG TABLET PO SCH (07:52)
[2018-07-02 08:27] LABS: BASOPHILS # (AUTO) 0.04 x10^3/uL (0-0.1); BASOPHILS % (AUTO) 1 % (0-1); EOSINOPHILS # (AUTO) 0.26 x10^3/uL (0-0.4); EOSINOPHILS % (AUTO) 4 % (1-7); LYMPHOCYTES # (AUTO) 2.51 x10^3/uL (1-3.4); LYMPHOCYTES % (AUTO) 38 % (22-44); MD NO; MEAN CORPUSCULAR HEMOGLOBIN 31.3 pg (27.0-34.8); MEAN CORPUSCULAR HGB CONC 32.5 g/dL (32.4-35.8); MEAN CORPUSCULAR VOLUME 96.1 fL (80-100); MONOCYTES # (AUTO) 0.59 x10^3/uL (0.2-0.8); MONOCYTES % (AUTO) 9 % (2-9); NEUTROPHILS # (AUTO) 3.19 x10^3/uL (1.8-6.8); NEUTROPHILS % (AUTO) 48 % (42-75); PLATELET COUNT 222 x10^3/uL (130-400); RED BLOOD COUNT 3.01 x10^6/uL (3.82-5.3); RED CELL DISTRIBUTION WIDTH 15.6 % (9.6-15.2)
[2018-07-02] MEDS ORDERED: FERR-51 PO (11:47)
[2018-07-02 14:10] VITALS: BP 122/67
== END 2018-07-02 15:32 | disposition home or self-care (01) | DRG 178 ==
LOC: ED 22:20 → EDIP 22:22 → 3NW 07-01 11:36 → DCLOUNGE 07-02 15:03
PROVIDERS: ADMIT Internal Medicine; ATTEND Internal Medicine
DX: J15.6 Pneumonia due to other Gram-negative bacteria (principal); N39.0 Urinary tract infection, site not specified; R07.9 Chest pain, unspecified; J18.9 Pneumonia, unspecified organism; D50.9 Iron deficiency anemia, unspecified; E03.9 Hypothyroidism, unspecified; E11.65 Type 2 diabetes mellitus with hyperglycemia; E66.9 Obesity, unspecified; E78.5 Hyperlipidemia, unspecified; I10 Essential (primary) hypertension; I25.10 Atherosclerotic heart disease of native coronary artery without angina pectoris; I25.2 Old myocardial infarction; M06.9 Rheumatoid arthritis, unspecified; Z87.891 Personal history of nicotine dependence; Z90.710 Acquired absence of both cervix and uterus; Z95.5 Presence of coronary angioplasty implant and graft; Z79.899 Other long term (current) drug therapy; Z68.34 Body mass index [BMI] 34.0-34.9, adult; Z88.5 Allergy status to narcotic agent; Z88.8 Allergy status to other drugs, medicaments and biological substances; R07.89 Other chest pain
CPT/HCPCS: 36415; 71045; 71275; 80048; 80053; 80061; 81001; 82040; 83036; 83540; 83550; 83735; 84439; 84443; 84484; 85025; 87040; 87077; 87086; 87186; 93005; 96365; 96375; 96376; G0378; J0456; J0696; J1644; Q9967; J2270; J7030; J7050